=== PATIENT | male | born 1970 | race Caucasian/White ===

== ENCOUNTER 2020-03-06 11:11 | Emergency (ER) | payer MEDICARE, MEDICAID, SELFPAY ==
[2020-03-06 12:35] VITALS: PULSE 88; RESP 18; TEMP 37.2; O2SAT 98; BMI 23.7
--- NOTE | 2020-03-06 13:53 | ED_ITS ---
HPI - Wound/Laceration General Chief Complaint: Wound/Laceration Stated Complaint: wound check Time Seen by Provider: 03/06/20 13:38 Source: patient Mode of arrival: ambulatory Limitations: no limitations History of Present Illness HPI narrative: 49-year-old male with a past medical history of clotting disorder, multiple DVTs, multiple bifem bypass, [place] filter placed on Xarelto here with right lower extremity pain and left lower extremity for the last week. Patient told me that he had a [place] filter placed in September at [facility] with Dr. Knight. He tells me he did not get along with Dr. Knight has and so he never followed up with him to have his sutures removed. He told me for the last week he has had pain in the right lower leg and some drainage from the incision site. Also c/o left lower leg for weeks to months. Onset (ago): week(s) Extremity Location: right: lower leg Associated symptoms: none Related Data Allergies Allergy/AdvReac Type Severity Reaction Status Date / Time ibuprofen AdvReac Unknown Verified 03/06/20 12:39 Review of Systems Review of Systems: Yes all other systems are reviewed and are negative Constitutional: Constitutional: Reports no additional constitutional complaints, Denies body ache(s), Denies chills, Denies fever(s), Denies headache(s) and Denies weakness Eyes: Eyes: Reports no additional eye complaints and Denies change in vision ENT: Reports system reviewed and no additional complaints, except as documented, Denies dizziness, Denies headache(s), Denies nasal congestion, Denies nasal discharge and Denies neck pain Cardiovascular: Cardiovascular: Reports no additional cardiovascular complaints, Denies chest pain, Denies leg edema and Denies dyspnea Respiratory: Respiratory: Reports no additional respiratory complaints, Denies cough and Denies dyspnea Gastrointestinal: Gastrointestinal: Reports no additional gastrointestinal complaints, Denies abdominal pain, Denies diarrhea, Denies nausea and Denies vomiting Genitourinary: Genitourinary: Denies urinary incontinence Musculoskeletal: Musculoskeletal: Reports no additional musculoskeletal complaints, Denies back pain, Denies arthralgias, Denies joint swelling, Denies neck pain, Denies numbness and Denies tingling Integumentary/Breasts: Skin/Breast: Reports system reviewed and no additional complaints, except as docu and Denies rash Neurologic: Reports system reviewed and no additional complaints, except as documented, Denies Abnormal speech present, Denies dizziness, Denies headache(s), Denies numbness, Denies tingling and Denies weakness PMFSH Past Medical History Attestation statement: The following information was validated with the patient. Source: old records reviewed and nursing notes reviewed Medical History Clotting disorder [place] filter in place Social History Social History Alcohol intake: unknown Smoking Status: Unknown if ever smoked Use of substances other than those prescribed or required for medical reasons: Unknown Advance Directives: No Advance Directives Information Provided: No Physical Exam Vital Signs: Vital Signs: Last Vital Signs Temp 98.9 F 03/06/20 12:35 Pulse 88 03/06/20 12:35 Resp 18 03/06/20 12:35 Pulse Ox 98 03/06/20 12:35 Body Mass Index 23.7 Const: General: cooperative, healthy appearing, comfortable and no acute distress Orientation/consciousness: patient oriented x3 Limitations: no limitations HENMT: Head: Yes normal to inspection Ears: hearing grossly normal bilaterally General nose exam: Normal external nose present Face and sinus: Yes normal facial exam Mouth: Normal oral and palatal mucosa present Throat: Yes posterior oropharynx normal Eyes: General: appearance normal, both eyes and all related structures Pupils: Equal, round and reactive pupils present Neck: Neck: Yes normal visual inspection Chest: Chest palpation & inspection: normal inspection of the chest Resp: Effort & Inspection: normal respiratory effort Auscultation: clear to auscultation bilaterally Cardio: Rate: regular rate Rhythm: regular rhythm Peripheral pulses: Peripheral pulses 2+ throughout GI: Inspection: Yes normal to inspection Palpation (GI): Soft to palpation and nontender Auscultation: normal bowel sounds Back/Spine/Pelvis: Thoracic/Lumbar Spine: thoracic and lumbar spine normal to inspection Skin: General skin exam: no rashes or lesions noted Neuro: General: patient oriented x3, no focal motor deficits and normal sensation to monofilament Cranial nerves: Yes Equal, round and reactive pupils present Cognition (Neuro): normal cognition Speech: No Abnormal speech present Gait exam (Neuro): Normal gait present Motor exam (neuro): 5/5 motor strength present throughout Extrem: Other: To the right upper inner thigh there are johanna present at an incision site with some mild erythema. No drainage/fluctuance/induration or te nderness. Patient c/o pain to the right posterior knee and right posterior calf. No redness/swelling. Also c/o left posterior calf pain with no redness/swelling. Palpable DP and PT pulses bilaterally. General: Yes normal to inspection Course Course Course Narrative: Bilateral LE pain with h/o multiple DVTS on xarelto, bi-fem bypass bilaterally and mery filter placed. On exam patient has johanna present in the right upper thigh at an incision site with some local erythema. No concerning signs/symptoms for infection at site. Patient tells me he refused to follow-[place] vascular [place] [facility] [place] not get alone. Recommended he either follow-up with them or establish another vascular surgeon. Given contact information for our vascular team here. Will remove johanna as they were placed in September and present further risk being in place for infection. Will check bilateral US to r/o DVT. 1649-ultrasound unremarkable for DVT. Patient likely has some underlying arterial disease and can follow up outpatient with vascular. There is no arterial emergency as he has distal pulses which are palpable. Reviewed worrisome signs and symptoms and when to return to the emergency department. Comfortable discharge home. Procedures Procedure Narrative Procedure Narrative: 6 johanna removed from site. some crusting noted but this was cleansed with peroxide and removed. No erythema or drainage. MDM - Wound/Laceration Medical Records Attestation: I reviewed the patient's medical records. Lab Data Attestation: I reviewed the patient's lab results. Imaging Data Venous US: Attestation: I personally reviewed and interpreted this imaging study as follows: Radiologist's impression: [address] [address] Ultrasound Report Signed Patient: Chris Hidalgo#: [id number] : 1970Acct:[id number] Age/Sex: 49 / MADM Date: 03/06/20 Loc: .ED Attending Dr: Ordering Physician: STANTNO CLEMENS NP Date of Service: 03/06/20 Procedure(s): US venous duplex LE BI Accession Number(s): [id number] cc: STANTON CLEMENS [employer]~ EXAMINATION: US VENOUS ULTRASOUND WITH DOPPLER LOWER EXTREMITY, BILATERAL CLINICAL INFORMATION: Bilateral lower extremity pain. COMPARISON: None TECHNIQUE: Ultrasound of the deep veins is performed from the hip to the calf with compression sonography and color and pulse Doppler assessment. Spectral analysis with color-flow imaging is performed. FINDINGS: RIGHT: There is normal venous compression and respiratory variation and augmented flow. The visualized common femoral vein, superficial femoral vein, profunda femoral vein, popliteal vein, and the trifurcation region shows no evidence of deep venous thrombosis. No popliteal cyst. The subcutaneous soft tissues are unremarkable. Incidental right superficial femoral arterial stent. LEFT: There is normal venous compression and respiratory variation and augmented flow. The visualized common femoral vein, superficial femoral vein, profunda femoral vein, popliteal vein, and the trifurcation region shows no evidence of deep venous thrombosis. No popliteal cyst. The subcutaneous soft tissues are unremarkable. If the patient's symptoms persist, followup ultrasound in 5 days 7 days might be of value to exclude proximal propagation from a non-visualized calf vein. US/US venous duplex LE BI IMPRESSION: No evidence for deep venous thrombosis in the visualized veins of the bilateral lower extremities. Discharge Plan Discharge Clinical Impression: Removal of staple Patient Disposition: Home, Self-Care Instructions: Stitches Removal (ED) Additional Instructions: You need to set yourself up with a vascular doctor. If the butterfly stitches fall out that is fine apply topical antibiotic to the area as discussed Referrals: Jake Fierro MD [Physician] - 2 days Interventions: ED Discharge Assessment Last Done: 03/06/20 16:38 Discharge Date/Time: 03/06/20 16:38
--- NOTE | 2020-03-06 14:06 | US_ITS ---
EXAMINATION: US VENOUS ULTRASOUND WITH DOPPLER LOWER EXTREMITY, BILATERAL CLINICAL INFORMATION: Bilateral lower extremity pain. COMPARISON: None TECHNIQUE: Ultrasound of the deep veins is performed from the hip to the calf with compression sonography and color and pulse Doppler assessment. Spectral analysis with color-flow imaging is performed. FINDINGS: RIGHT: There is normal venous compression and respiratory variation and augmented flow. The visualized common femoral vein, superficial femoral vein, profunda femoral vein, popliteal vein, and the trifurcation region shows no evidence of deep venous thrombosis. No popliteal cyst. The subcutaneous soft tissues are unremarkable. Incidental right superficial femoral arterial stent. LEFT: There is normal venous compression and respiratory variation and augmented flow. The visualized common femoral vein, superficial femoral vein, profunda femoral vein, popliteal vein, and the trifurcation region shows no evidence of deep venous thrombosis. No popliteal cyst. The subcutaneous soft tissues are unremarkable. If the patient's symptoms persist, followup ultrasound in 5 days 7 days might be of value to exclude proximal propagation from a non-visualized calf vein. US/US venous duplex LE BI IMPRESSION: No evidence for deep venous thrombosis in the visualized veins of the bilateral lower extremities.
== END 2020-03-06 16:38 | disposition home or self-care (01) ==
PROVIDERS: Emergency Provider Emergency Medicine Emergency Medical Services
DX: Z48.02 Encounter for removal of sutures (principal); M79.662 Pain in left lower leg; M79.661 Pain in right lower leg; Z86.718 Personal history of other venous thrombosis and embolism; Z79.01 Long term (current) use of anticoagulants
CPT/HCPCS: 93970; 99284